=== PATIENT | male | born 1945 | race Caucasian/White ===

== ENCOUNTER 2018-07-31 15:35 | Emergency (ER) | payer MEDICARE ==
[~2018-07-31] VITALS: Ht 185.4 cm; Wt 93.9 kg
[2018-07-31 16:10] VITALS: BP 133/76
[2018-07-31] MEDS ORDERED: LIDOCAINE 1% PF 2 ML VIAL. INJ ONE (16:15)
[2018-07-31] MEDS ORDERED: DIPHTH,PERTUSS(ACELL),TET TOX 0.5 ML DISP.SYRIN. VAX IM ONE (16:15)
--- NOTE | 2018-07-31 17:29 | RAD ---
Left fourth finger 3 views HISTORY: Trauma, laceration or dorsal last back distal fourth phalanx 3 views were taken of the left fourth finger. There is no acute fracture. A an opaque foreign body is not identified. There is mild increase space between the lunate and navicular suggesting scapholunate ligament injury which may be chronic. There is loss of space between the capitate and lunate from arthritis. IMPRESSION: 1. No acute fracture left fourth finger. 2. Arthritis left wrist. 3. Scapholunate ligament injury. Electronically signed by: Roderick Be MD (07/31/2018 5:26 PM) [facility]
--- NOTE | 2018-07-31 17:37 | PHYS DOC ---
Past Medical History Past Medical History: High Cholesterol Past Surgical History: Other Additional Past Surgical Histo: umbilical hernia, right shoulder Smoking: Cigarettes, Less than 1pk/day Alcohol Use: None Drug Use: None Adult General Chief Complaint Chief Complaint: LACERATION/AVULSION HPI HPI Patient is a 73 year old male who presents to the ER with complaints of a laceration to the distal aspect of his left fourth finger. Patient states he was using a pocket knife to strip wire when he accidentally cut himself approximately 1 to 2 hours ago. He is unsure when his last tetanus shot was. He denies any pain, numbness, tingling, or decreased range of motion of the affected finger at this time. Review of Systems Review of Systems Constitutional: Denies fever or chills [] Musculoskeletal: Denies joint pain [] Integument:See HPI Neurologic: Denies focal weakness or sensory changes [] Current Medications Current Medications Current Medications Medications (Trade) Dose Ordered Sig/Veto Start Time Stop Time Status Last Admin Dose Admin Diphtheria/ Tetanus/Acell Pertussis (Boostrix) 0.5 ml ONCE ONCE 07/31/18 16:15 07/31/18 16:16 DC 07/31/18 17:07 0.5 ML Lidocaine HCl (Xylocaine-Mpf 1% 2ml Vial) 6 ml 1X ONCE 07/31/18 16:15 07/31/18 16:16 DC 07/31/18 17:06 6 ML Allergies Allergies Allergies Coded Allergies Type Severity Reaction Last Updated Verified No Known Drug Allergies 03/04/14 No Physical Exam Physical Exam Constitutional: Well developed, well nourished, no acute distress, non-toxic appearance. [] HENT: Normocephalic, atraumatic, bilateral external ears normal, nose normal. [] Eyes: conjunctiva normal, no discharge. [] Neck: Normal range of motion, no stridor. [] Skin: Warm, dry, no erythema, no rash; 2 cm laceration noted to palmar aspect of distal end of left 4th digit, bleeding controlled with pressure held by patient. . [] Extremities: No tenderness, no cyanosis, no clubbing, ROM intact, no edema; full extension and flexion of left 4th digit[] Neurologic: Alert and oriented X 3, normal motor function, normal sensory function, no focal deficits noted. [] Psychologic: Affect normal, judgement normal, mood normal. [] Current Patient Data Vital Signs Vital Signs Date Time Temp Pulse Resp B/P (MAP) Pulse Ox O2 Delivery O2 Flow Rate FiO2 07/31/18 16:10 97.7 78 16 133/76 (95) 97 Room Air 97.7 EKG EKG [] Radiology/Procedures Radiology/Procedures []Laceration Repair by me: Anesthesia: 1% lidocaine locally Location: distal end of left hand 4th digit Tendon/Joint/Nerves: No injury Foreign body: None detected after copious irrigation and exploration with 180 ml of NS Technique: 6 Simple Interrupted Sutures with 5-0 Ethilon Complexity: No subcutaneous sutures/mucosal repair/edge excision Post Closure Length: 2 cm Patient's bleeding was easily controlled in the department and there is no indication of anemia. No evidence of compartment syndrome, neurologic injury, vascular injury, open joint, tendon laceration, or foreign body. Patient is appropriate for outpatient follow up. PROCEDURE: FINGER(S) LEFT Left fourth finger 3 views HISTORY: Trauma, laceration or dorsal last back distal fourth phalanx 3 views were taken of the left fourth finger. There is no acute fracture. A an opaque foreign body is not identified. There is mild increase space between the lunate and navicular suggesting scapholunate ligament injury which may be chronic. There is loss of space between the capitate and lunate from arthritis. IMPRESSION: 1. No acute fracture left fourth finger. 2. Arthritis left wrist. 3. Scapholunate ligament injury. Course & Med Decision Making Course & Med Decision Making Pertinent Labs and Imaging studies reviewed. (See chart for details) [] Dragon Disclaimer Dragon Disclaimer This electronic medical record was generated, in whole or in part, using a voice recognition dictation system. Departure Departure Impression: Primary Impression: Laceration of left ring finger w/o foreign body w/o damage to nail Additional Impression: Need for Tdap vaccination Disposition: 01 HOME, SELF-CARE Condition: STABLE Referrals: ANDREI WILOSN (PCP) Patient Instructions: Fingertip Laceration, Laceration Care, Adult, Easy-to- Read Additional Instructions: Tylenol or ibuprofen as needed for pain. Leave the dressing that was placed in the ER in place until tomorrow, then dressing changes and antibiotic ointment to the affected area twice daily and as needed. Wear the aluminum finger splint that was placed until sutures are removed. Follow up with your primary care doctor or return to the ER in 10-14 days to have the sutures removed. Follow up sooner if area becomes red, hot, drains pus, or a fever develops. Problem Qualifiers Primary Impression: Laceration of left ring finger w/o foreign body w/o damage to nail Encounter type: initial encounter Qualified Codes: S61.215A - Laceration without foreign body of left ring finger without damage to nail, initial encounter HARISH SIMMS APRN Jul 31, 2018 17:37
== END 2018-07-31 17:51 | disposition home or self-care (01) ==
LOC: ER 15:35
DX: S61.215A Laceration without foreign body of left ring finger without damage to nail, initial encounter (principal); M19.032 Primary osteoarthritis, left wrist; E78.00 Pure hypercholesterolemia, unspecified; F17.210 Nicotine dependence, cigarettes, uncomplicated; W26.0XXA Contact with knife, initial encounter; Y93.89 Activity, other specified; Y92.89 Other specified places as the place of occurrence of the external cause; Y99.8 Other external cause status
CPT/HCPCS: 12001; 73140; 90471; 90715; 99283

== ENCOUNTER 2018-08-12 10:46 | Emergency (ER) | payer MEDICARE ==
[~2018-08-12] VITALS: Ht 185.4 cm; Wt 94.3 kg
[2018-08-12 10:58] VITALS: BP 155/79
--- NOTE | 2018-08-12 11:19 | PHYS DOC ---
Past Medical History Past Medical History: High Cholesterol Past Surgical History: Other Additional Past Surgical Histo: umbilical hernia, right shoulder Alcohol Use: None Drug Use: None Adult General Chief Complaint Chief Complaint: SUTURE/STAPLE REMOVAL HPI HPI Patient is a 73 year old male who presents for suture removal from the left ring finger. Sutures have been in for 12 days. Review of Systems Review of Systems Constitutional: Denies fever or chills [] Musculoskeletal: Denies back pain or joint pain [] Integument: Visit for suture removal Neurologic: Denies headache, focal weakness or sensory changes [] All other systems were reviewed and found to be within normal limits, except as documented in this note. Allergies Allergies Allergies Coded Allergies Type Severity Reaction Last Updated Verified No Known Drug Allergies 03/04/14 No Physical Exam Physical Exam Constitutional: Well developed, well nourished, no acute distress, non-toxic appearance. [] Skin: Left ring finger tip with the laceration site with oximetry 5 interrupted sutures going through the nail bed and the skin. There is an open wound at the tip of the finger approximately 0.5 cm with no signs of infection. Back: No tenderness, no CVA tenderness. [] Extremities: No tenderness, no cyanosis, no clubbing, ROM intact, no edema. [] Neurologic: Alert and oriented X 3, normal motor function, normal sensory function, no focal deficits noted. [] Psychologic: Affect normal, judgement normal, mood normal. [] EKG EKG [] Radiology/Procedures Radiology/Procedures [] Course & Med Decision Making Course & Med Decision Making Pertinent Labs and Imaging studies reviewed. (See chart for details) This is a 73-year-old male patient presenting to the ED today for suture removal from the left ring finger. Sutures were removed by me. Follow-up with primary care doctor as needed. Dragon Disclaimer Dragon Disclaimer This electronic medical record was generated, in whole or in part, using a voice recognition dictation system. Departure Departure Impression: Primary Impression: Visit for suture removal Disposition: 01 HOME, SELF-CARE Condition: STABLE Referrals: ANDREI WILSON (PCP) Follow-up in 1-2 weeks Patient Instructions: Suture Removal-Brief Additional Instructions: You had stitches removed from the left ring finger, keep the area clean and dry. Continue applying Neosporin to the area for seven more days. Follow up with your own doctor in 1-2 weeks as needed. NADER OBRIEN APRN Aug 12, 2018 11:19
== END 2018-08-12 11:29 | disposition home or self-care (01) ==
LOC: ER 10:46
DX: S61.215D Laceration without foreign body of left ring finger without damage to nail, subsequent encounter (principal); E78.00 Pure hypercholesterolemia, unspecified; X58.XXXD Exposure to other specified factors, subsequent encounter
CPT/HCPCS: 99281

== ENCOUNTER → 2018-11-28 | Outpatient (CLI) | payer MEDICARE ==
--- NOTE | 2018-11-28 12:35 | RAD ---
EXAMINATION: Magnetic resonance imaging (MRI) of the lumbar spine without contrast 11/28/2018 11:15 AM HISTORY: Low back pain for 2 weeks TECHNIQUE: Multiplanar multi-weighted MRI of the lumbar spine was performed without intravenous contrast using the standard lumbar spine protocol. Contrast information: None administered. COMPARISON: None available. FINDINGS: There is transitional anatomy at the lumbosacral junction with partial sacralization of L5 vertebral body. There is heterogeneity of the marrow signal which is nonspecific, however may be seen in the setting of underlying marrow replacing disorder such as multiple myeloma. Vertebral body heights are maintained. Sagittal alignment is intact. Conus medullaris terminates at T12-L1. Distal spinal cord signal intensity is normal in all sequences. Mild anterior marginal osteophytosis is identified at L3-L4 and L4-L5. 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 Visualized portions of the sacrum appear intact. L1-L2: Disc is normal in configuration. There is no significant facet arthropathy. No neuroforaminal or spinal canal stenosis. L2-L3: There is mild disc bulge. No significant facet arthropathy. Mild bilateral neuroforaminal stenosis. No spinal canal stenosis. L3-L4: There is a mild circumferential disc bulge with left far lateral annular fissure. There is moderate facet arthropathy. There is moderate left and [id number] right neuroforaminal stenosis. There is narrowing the right lateral recess without impingement of the traversing nerve root. L4-L5: There is a disc bulge with right far lateral disc protrusion. There is moderate to severe right and moderate left facet arthropathy. There is moderate to severe right and mild left neuroforaminal stenosis. There is right lateral recess stenosis. L5-S1: No significant disc herniation. No neuroforaminal or spinal canal stenosis. IMPRESSION: 1. Transitional anatomy is noted at the lumbosacral junction with sacralization of the L5 vertebral body. 2. Mild degenerative changes of lumbar spine, as described in detail above. 3. There is heterogeneity of the marrow signal which is nonspecific and may be associated with areas of fatty marrow versus underlying marrow replacement as may be seen with multiple myeloma. Electronically signed by: Melodie Peacock MD (11/28/2018 12:33 PM) [facility]
== END | disposition home or self-care (01) ==
LOC: MRI 10:46
PROVIDERS: ATTEND Internal Medicine
DX: M47.816 Spondylosis without myelopathy or radiculopathy, lumbar region (principal); M48.061 Spinal stenosis, lumbar region without neurogenic claudication; M51.26 Other intervertebral disc displacement, lumbar region; M12.88 Other specific arthropathies, not elsewhere classified, other specified site
CPT/HCPCS: 72148

== ENCOUNTER 2020-11-29 12:45 | Emergency (ER) | payer MEDICARE ==
[~2020-11-29] VITALS: Ht 185.4 cm; Wt 100.0 kg
--- NOTE | 2020-11-29 13:09 | PHYS DOC ---
Past Medical History Past Medical History: High Cholesterol Past Surgical History: Other Additional Past Surgical Histo: umbilical hernia, right shoulder Smoking Status: Current Every Day Smoker Alcohol Use: None Drug Use: None General Adult EDM: Chief Complaint: TRAUMA ALERT HPI: HPI: Patient is a 75-year-old male presenting for trauma alert after riding his lawn more 2 hours ago and subsequently rolling towards his right on a hill getting pinned by said lawnmower. He did not lose consciousness or hit his head. States he had the lawnmower with immediate pressure on top of his rib cage and right knee for less than 10 seconds until he had the strength to push it back off of him. Reports he was pretty shaken up from the event but has been ambulatory ever since. Reports ongoing right-sided chest wall pain at home prompted him to drive himself to the ER for evaluation. Denies any blood thinner use, no recent changes in health, fever, blurred vision, ripping or tearing sensation in chest, cough, abdominal pain, urinary symptoms, he has had no bladder or bowel incontinence since accident, no ludwig hematuria, no change in motor or sensory or neuro function Review of Systems: Review of Systems: Fourteen body systems of review of systems have been reviewed. See HPI for pertinent positives and negative responses, other jason all other systems are negative, non-pertinent or non-contributory Heart Score: C/O Chest Pain: No HEART Score for Chest Pain: HEART Score for Chest Pain Response (Comments) Value History Slighlty/Non-Suspicious 0 ECG Nonspecific Repolarizatio 1 Age > 65 2 Risk Factors >3 Risk Factors or Hx CAD 2 Troponin < Normal Limit 0 Total 5 Risk Factors: Risk Factors: DM, Current or recent (<one month) smoker, HTN, HLP, family history of CAD, obesity. Risk Scores: Score 0 - 3: 2.5% MACE over next 6 weeks - Discharge Home Score 4 - 6: 20.3% MACE over next 6 weeks - Admit for Clinical Observation Score 7 - 10: 72.7% MACE over next 6 weeks - Early Invasive Strategies Allergies: Allergies: Allergies Coded Allergies Type Severity Reaction Last Updated Verified No Known Drug Allergies 03/04/14 No Physical Exam: PE: Constitutional: Pt is oriented to person, place, and time. Pt appears well-developed and well- nourished. HEENT: Head: Normocephalic and atraumatic. TMs clear, no hemotympanum Conjunctivae and EOM are normal. Pupils are equal, round, and reactive to light. Oropharynx is clear and moist. No hematomas or lacerations or abrasions to face or scalp OP clear, no blood, no malocclusion, dentition intact Nares clear, no nasal septal hematoma Midface stable Neck: C-spine midline nontender, no step-offs Cardiovascular: Normal rate, regular rhythm and normal heart sounds. Pulmonary/Chest: Effort normal and breath sounds normal. No respiratory distress. No wheezes. CTA bilaterally Abdominal: Soft. Bowel sounds are normal. Pt exhibits no distension. There is no tenderness. Musculoskeletal: No bony tenderness to extremities, no deformities, full ROM extremities Chest wall stable Pelvis stable and non-tender No vertebral TTP and spine without stepoffs Neurological: Pt is alert and oriented to person, place, and time. Moving all extremities willfully, able to wiggle all fingers and toes Alert and oriented x 3 Sensation grossly intact Skin: Skin is warm and dry. No abrasions, no lacerations Psychiatric: Behavior is appropriate for situation Current Patient Data: Vital Signs: Vital Signs Date Time Temp Pulse Resp B/P (MAP) Pulse Ox O2 Delivery O2 Flow Rate FiO2 11/29/20 12:50 98.2 83 18 131/63 (104) 98 Room Air 98.2 Vital Signs Date Time Temp Pulse Resp B/P (MAP) Pulse Ox O2 Delivery O2 Flow Rate FiO2 11/29/20 12:50 98.2 83 18 131/63 (104) 98 Room Air 98.2 EKG: EKG: EKG ordered and interpreted by myself at 1300 hrs. as sinus rhythm at 84 bpm, prolonged UT at 212 otherwise unremarkable intervals, left axis deviation, no STEMI Radiology/Procedures: Radiology/Procedures: EXAMINATION: XR CHEST 1V, XR RIBS 2 VIEWS RT CLINICAL HISTORY: Right-sided chest wall pain after lawnmower rolled on top of patient EXAM DATE/TIME: 11/29/2020 1:54 PM COMPARISON: None FINDINGS: Lines, Tubes, and Devices: None. Cardiomediastinal Silhouette: Normal heart size. Aortic atherosclerotic calcification. Lungs and Pleura: Nonspecific mild diffuse interstitial prominence, possibly chronic. Minimal left basilar opacities, likely subsegmental atelectasis and/or scarring. No evidence of pleural effusion or pneumothorax. Bones and Soft Tissues: No evidence of acute osseous abnormality. Degenerative changes of the thoracic spine. IMPRESSION: No definitive evidence of acute cardiopulmonary abnormality as described. No evidence of acute right rib fracture. Electronically signed by: Damon Edwards DO (11/29/2020 2:38 PM) [facility] Course & Med Decision Making: Course & Med Decision Making Complaining of pain to : Right-sided chest wall, right hip and right knee pain Defer CT brain and c-spine: normal neuro exam, lack of spinal TTP, non-severe mechanism E-FAST performed despite vitals WNL, no abdominal tenderness or external signs of trauma, non-severe mechanism and negative Given history, exam, and workup, low suspicion for ICH, skull fx, spine fx or other acute spinal syndrome, PTX, pulmonary contusion, cardiac contusion, ao rtic/vertebral dissection, hollow organ injury, acute traumatic abdomen, significant hemorrhage, extremity fracture. Disposition: Expected transient and self limiting course for pain discussed with patient. Tetanus up-to-date. Patient understands that some injuries may present in a delayed fashion and they have been given strict return precautions. Prompt follow up with primary care physician discussed. Discharge home. Dragon Disclaimer: [employer] Disclaimer: This electronic medical record was generated, in whole or in part, using a voice recognition dictation system. Ultrasound Ultrasound : Ultrasound: normal Progress Bedside E-FAST exam performed and interpreted by myself as negative for any emergent or surgical processes Departure Departure Impression: Primary Impression: Chest wall contusion Additional Impressions: Knee contusion Abrasion of knee, right Abrasion of right elbow Disposition: 01 HOME / SELF CARE / HOMELESS Condition: STABLE Referrals: ANDREI WILSON (PCP) Patient Instructions: Abrasions, Contusion Additional Instructions: It is likely that you have experienced a chest wall contusion and various abrasions to your body that is causing you pain. A Rest, Ice, Compression, Elevation (RICE) strategy may also be helpful in the acute phase to your knee and ice can be applied to your chest. Please continue supportive care practices such as taking NSAIDs and/or Tylenol as needed for pain. Contact your primary care doctor first thing after ER departure to review ER visit today. If any concerning signs or symptoms present prior to outpatient follow-up please do not hesitate to come back for repeat evaluation. It was a pleasure to take care of you and I wish you the best going forward PHANI PARKER DO Nov 29, 2020 13:09
--- NOTE | 2020-11-29 14:20 | EKG ---
[facility] [address] [place] [address] Test Date: 2020-11-29 Test Time: 12:56:14 Pat Name: SY MAHAJAN Department: Room: Gender: Tub Operator: : 1945 Requested By: PHANI PARKER Order Number: [id number] Reading MD: Stan Griffith Measurements Intervals Desdemona Rate: 84 P: 33 IN: 212 QRS: -3 QRSD: 84 T: -156 QT: 354 QTc: 421 Interpretive Statements SINUS RHYTHM PROLONGED IN INTERVAL LEFTWARD AXIS T ABNORMALITY IN HIGH LATERAL LEADS INFERIOR LEADS ABNORMAL ECG RI6.01 No previous ECG available for comparison Electronically Signed On 11-30-2020 11:49:57 CDT by Stan Griffith
--- NOTE | 2020-11-29 14:40 | RAD ---
EXAMINATION: XR CHEST 1V, XR RIBS 2 VIEWS RT CLINICAL HISTORY: Right-sided chest wall pain after lawnmower rolled on top of patient EXAM DATE/TIME: 11/29/2020 1:54 PM COMPARISON: None FINDINGS: Lines, Tubes, and Devices: None. Cardiomediastinal Silhouette: Normal heart size. Aortic atherosclerotic calcification. Lungs and Pleura: Nonspecific mild diffuse interstitial prominence, possibly chronic. Minimal left ba silar opacities, likely subsegmental atelectasis and/or scarring. No evidence of pleural effusion or pneumothorax. Bones and Soft Tissues: No evidence of acute osseous abnormality. Degenerative changes of the thoraci c spine. IMPRESSION: No definitive evidence of acute cardiopulmonary abnormality as described. No evidence of acute right rib fracture. Electronically signed by: Damon Edwards DO (11/29/2020 2:38 PM) [facility]
--- NOTE | 2020-11-29 14:44 | RAD ---
EXAMINATION: XR KNEE 3 VIEWS_RT, XR BILATERAL HIP (WITH OR WITHOUT PELVIS) 2 VIEWS_RIGHT CLINICAL HISTORY: Right hip and knee pain after lawnmower rolled over patient TECHNIQUE: XR KNEE 3 VIEWS_RT, XR BILATERAL HIP (WITH OR WITHOUT PELVIS) 2 VIEWS_RIGHT Number of Images/Views: 3 each COMPARISON: None FINDINGS: RIGHT HIP: Joint space and alignment relatively well-maintained in the right hip. Left hip unremarkab le on limited evaluation. Pubic symphysis and SI joints maintained. No acute fracture. Vascular calci fications. RIGHT KNEE: Moderate medial compartment narrowing with tiny marginal osteophytes. No acute fracture. Small patellar enthesophyte. No joint effusion. Vascular calcifications. IMPRESSION: No acute osseous abnormality. Electronically signed by: Damon Edwards DO (11/29/2020 2:42 PM) [facility]
[2020-11-29 14:58] VITALS: BP 124/63
== END 2020-11-29 15:33 | disposition home or self-care (01) ==
LOC: ER 12:45
DX: S20.211A Contusion of right front wall of thorax, initial encounter (principal); S80.01XA Contusion of right knee, initial encounter; S50.311A Abrasion of right elbow, initial encounter; M25.551 Pain in right hip; R07.89 Other chest pain; W28.XXXA Contact with powered lawn mower, initial encounter; Y93.89 Activity, other specified; Y92.89 Other specified places as the place of occurrence of the external cause; Y99.8 Other external cause status
CPT/HCPCS: 71045; 71100; 73502; 73562; 93005; 99285-25